=== PATIENT | female | born 1975 | race Caucasian/White ===

== ENCOUNTER 2017-01-07 18:02 | Emergency (ER) | payer OTHER ==
--- NOTE | 2017-01-07 19:33 | DIAGNOSTIC IMAGING REPORT ---
PROCEDURE: XR CHEST 2 VIEW INDICATION: COUGH TECHNIQUE: Single view. COMPARISON: None. FINDINGS: The cardiomediastinal contour is normal. No central venous congestion. The pulmonary arteries are prominent. The lungs hyperinflated but clear without focal consolidation, pleural effusion or pneumothorax. The osseous structures are intact. IMPRESSION: 1. No acute disease. 2. Findings of asthma or emphysema.
--- NOTE | 2017-01-07 20:17 | ED ORDER SUMMARY ---
..... Patient: ANGIE MCCURDY OrderSheet [facility] VisitID: [id number] [address] [place] [address] 41y, F Registration Date/Time: 01/07/2017 ORDER SHEET Weight: 49.8 kg (measured) Allergies: No Known Drug Allergy GENERAL ORDERS: Chest 2V Urgent (18:58 01/07/2017 HBivens A.R.N.P.) (Ack 19:00 TBergley) (19:51 [facility] [place] [place] MEDICATION ORDERS: Albuterol Neb w Atrovent 1 unit dose (NOW) (18:58 01/07/2017 HBivens A.R.N.P.) (19:21 CBradburn R.N.) Albuterol Neb Tx 2 unit doses (NOW) (18:58 01/07/2017 HBivens A.R.N.P.) (19:22 CBradburn R.N.) IV FLUIDS: ORDER SHEET NOTES: [Electronically signed by Radha Yates (20:30 01/07/2017)] [Electronically signed by Joya Rodriges.R.N.P. (22:52 01/07/2017)] [Electronically locked/signed by Radha Yates (20:30 01/07/2017)]
--- NOTE | 2017-01-07 20:17 | ED NURSING NOTES ---
Clinical Report - Nurses [facility] [address] [place] [address] 01/07/2017 18:02 Patient: ANGIE MCCURDY TRIAGE 18:22 01/07/17. BP: 123/86. HR: 87. RR: 24. O2 saturation: 90%. Temp: 98.4 F. Pain level now: 01/07. --18:24 Jodie Price R.N. Triage time 18:24. Acuity: LEVEL 3. Chief Complaint: SORE THROAT. --18:26 Jodie Price R.N. Weight: 49.8 kg measured. Height/Length: 65 inches Per Patient. BMI: 18.3. --18:22 Jodie Price R.N. Medications None. --18:25 Jodie Price R.N. Allergies No Known Drug Allergy. --18:25 Jodie Price R.N. History Arrived by private vehicle. Historian: patient. Accompanied by family. This started yesterday. SURGERY HX: ( foot surgery). SOCIAL HX: Heavy tobacco smoker- 1 pack per day. Alcohol use. (denies). History of drug use. (denies). No infectious disease exposure. --18:26 Jodie Price R.N. ( cough). --18:27 Jodie Price R.N. PHYSICAL ASSESSMENT GENERAL / NEURO / PSYCH: Alert. Oriented X 4. Appears in no acute distress. HEENT: Facial swelling present Rt sided lymphadenopathy. Pupils equal, round and reactive to light. Pharyngeal erythema. Hoarse voice. Mouth within normal limits upon inspection. RESPIRATORY: Cough. Crackles and wheezes diffusely over both lungs. SKIN: Skin is warm. --18:32 Jodie Price R.N. NURSING PROGRESS NOTES 18:32 01/07/17. O2 saturation: 96% at 2 liters/minute. --18:33 Jodie Price R.N. Oxygen administered at 2 liters. Head of bed elevated. Call light placed in reach. Side rails up. Bed placed in lowest position. --18:35 Jodie Price R.N. ( report to ankita norman for end of shift coverage.). --18:51 Jodie Price R.N. 19:21 01/07/2017 ALBUTEROL NEB W ATROVENT Neb TX 1 unit dose given. Given by the respiratory therapist. Allergies verified and confirmed 5 rights. --19:21 Clarissa Keenan R.N. 19:22 01/07/2017 Albuterol Neb [place] Nebulizer 2 unit dose given. Given by the respiratory therapist. Allergies verified and confirmed 5 rights. --19:22 Clarissa Keenan R.N. DISPOSITION / DISCHARGE Departure time: 2029. Condition at departure: unchanged and stable. No learning barriers present. Discharge instructions provided and reviewed with the patient. Reviewed medication(s). Patient verbalized understanding. Written instructions provided in Kazakh. The patient was discharged by the nurse practitioner. She was discharged home. She left the Emergency Department ambulatory and via private vehicle. Patient driving. --20:30 Radha Yates. Locked/Released at 01/07/2017 20:30 by Radha Yates,
--- NOTE | 2017-01-07 20:17 | ED CLINICAL REPORT ---
Clinical Report - Physicians/Mid Levels [facility] [address] [place] [address] 01/07/2017 18:02 Patient: ANGIE MCCURDY Time Seen: 18:21; initial patient contact, initial documentation, patient care assumed. Arrived- By private vehicle. Historian- patient. HISTORY OF PRESENT ILLNESS Chief Complaint: COUGH. This started about 3 - 4 days ago and is still present. The illness is described as moderate. The patient has had a cough and a sore throat. She has had scant amounts of thick, yellow sputum. No difficulty breathing, chest discomfort or pain, fever or muscle aches. No nasal congestion or discharge, sinus pressure, sinus drainage or ear pain. Additional history - No known contact with a sick individual. No recent travel. Similar symptoms previously: None. Recent medical care: Not recently seen/assessed. REVIEW OF SYSTEMS The patient has had moderately enlarged right neck lymph nodes. All systems otherwise negative, except as recorded above. PAST HISTORY See nurses notes. ADDITIONAL PROBLEMS: Bronchitis. Depression. --14:36 Doreen Ocasio R.N. Concussion [RuleOut]. --14:36 Doreen Ocasio R.N.. ADDITIONAL SURGERIES: Foot surgery. --14:36 Doreen Ocasio R.N.. SOCIAL HISTORY Heavy tobacco smoker. Occasional alcohol use. History of occasional drug use: marijuana. Not exposed to second-hand smoke at home. No recent travel. Is a local resident. FAMILY HISTORY Negative. ADDITIONAL NOTES The nursing notes have been reviewed with agreement regarding the chief complaint, HPI, ROS, PMH and patient medications and allergies. PHYSICAL EXAM Vital Signs: 01/07/2017 18:22 BP: 123/86. HR: 87. RR: 24. O2 saturation: 90%. Temp: 98.4 F. Pain level now: 5/10. Have been reviewed as abnormal and appear to be correct. Blood pressure normal. Heart rate normal. Respiratory rate normal. Temperature normal. Oxygen saturation low. Appearance: Alert. No acute distress. Eyes: Pupils equal, round and reactive to light. Eyes normal inspection. ENT: Ears normal. Nose normal. Pharynx normal. Uvula midline. Neck: Normal inspection. Neck supple. CVS: Normal heart rate and rhythm. Heart sounds normal. Pulses normal. Respiratory: No respiratory distress. Breath sounds abnormal. Expiratory and inspiratory moderate bilateral wheezes diffusely. Abdomen: Soft and nontender. No organomegaly. Back: Normal inspection. Skin: Skin warm and dry. Normal skin color. No rash. Normal skin turgor. Extremities: Extremities exhibit normal ROM. No lower extremity edema. Neuro: Oriented X 3. No motor deficit. No sensory deficit. LABS, X-RAYS, AND EKG Chest X-ray: Normal Chest X-Ray. (IMPRESSION: 1. No acute disease. 2. Findings of asthma or emphysema. Electronically Final signed by:Yamilka Alba MD 01/07/2017 7:33:12 PM). The X-rays were interpreted by the radiologist and contemporaneously by me. PROGRESS AND PROCEDURES Course of Care: 2000. resp even and unlabored, still some mild B insp wheezes, but sounds better pt encouraged to f/u re concerns for developing emphysema. Patient counseled in person regarding the patient's stable condition, test results and diagnosis. Differential Diagnosis: Other possible considerations: flu, uri, viral illness, pharyngitis, pneumonia, asthma, bronchitits, copd, emphysema. Above considerations are based on history, physical exam, reassessment and X-Ray data. Differential diagnosis was discussed with patient. Disposition: Discharged home in good and improved condition (20:17). Condition: good and stable. CLINICAL IMPRESSION Acute bronchitis associated with chronic obstructive pulmonary disease. INSTRUCTIONS Do not smoke. Warnings: Further evaluation is necessary in order to assess the possibility of serious illness. It is very important to follow up with a physician. GENERAL WARNINGS: Return or contact your physician immediately if your condition worsens or changes unexpectedly, if not improving as expected, or if other problems arise. Specifically return if problem worsens. Prescription Medications: Albuterol HFA oral inhaler: inhale 1 to 2 puffs every four to six hours as needed for difficulty breathing. Dispense one (1) unit. No refills. Prednisone 20 mg: take 3 orally every day for 5 days. Dispense fifteen (15). No refills. Zithromax 250 mg tablets: take 2 orally today, followed by 1 daily for the next 4 days. No refills. Substitution is permissible. Follow-up: Follow up with your doctor in about two days even if well. Call for an appointment. Summary of care provided to patient. Understanding of the discharge instructions verbalized by patient. (Electronically signed by Joya Rodriges A.R.N.P. 01/07/2017 22:52)
--- NOTE | 2017-01-07 20:17 | ED ORDER SUMMARY ---
..... Patient: ANGIE MCCURDY OrderSheet [facility] VisitID: [id number] [address] [place] [address] 41y, F Registration Date/Time: 01/07/2017 ORDER SHEET Weight: 49.8 kg (measured) Allergies: No Known Drug Allergy GENERAL ORDERS: Chest 2V Urgent (18:58 01/07/2017 HBivens A.R.N.P.) (Ack 19:00 TBergley) (19:[facility] MEDICATION ORDERS: Albuterol Neb w Atrovent 1 unit dose (NOW) (18:58 01/07/2017 HBivens A.R.N.P.) (19:21 CBradburn R.N.) Albuterol Neb Tx 2 unit doses (NOW) (18:58 01/07/2017 HBivens A.R.N.P.) (19:22 CBradburn R.N.) IV FLUIDS: ORDER SHEET NOTES: [Electronically signed by Radha Yates (20:30 01/07/2017)] [Electronically signed by Joya Rodriges.R.N.P. (22:52 01/07/2017)] [Electronically locked/signed by Radha Yates (20:30 01/07/2017)]
--- NOTE | 2017-01-07 20:17 | ED NURSING NOTES ---
Clinical Report - Nurses [facility] [address] [place] [address] 01/07/2017 18:02 Patient: ANGIE MCCURDY TRIAGE 18:22 01/07/17. BP: 123/86. HR: 87. RR: 24. O2 saturation: 90%. Temp: 98.4 F. Pain level now: 01/07. --18:24 Jodie Price R.N. Triage time 18:24. Acuity: LEVEL 3. Chief Complaint: SORE THROAT. --18:26 Jodie Price R.N. Weight: 49.8 kg measured. Height/Length: 65 inches Per Patient. BMI: 18.3. --18:22 Jodie Price R.N. Medications None. --18:25 Jodie Price R.N. Allergies No Known Drug Allergy. --18:25 Jodie Price R.N. History Arrived by private vehicle. Historian: patient. Accompanied by family. This started yesterday. SURGERY HX: ( foot surgery). SOCIAL HX: Heavy tobacco smoker- 1 pack per day. Alcohol use. (denies). History of drug use. (denies). No infectious disease exposure. --18:26 Jodie Price R.N. ( cough). --18:27 Jodie Price R.N. PHYSICAL ASSESSMENT GENERAL / NEURO / PSYCH: Alert. Oriented X 4. Appears in no acute distress. HEENT: Facial swelling present Rt sided lymphadenopathy. Pupils equal, round and reactive to light. Pharyngeal erythema. Hoarse voice. Mouth within normal limits upon inspection. RESPIRATORY: Cough. Crackles and wheezes diffusely over both lungs. SKIN: Skin is warm. --18:32 Jodie Price R.N. NURSING PROGRESS NOTES 18:32 01/07/17. O2 saturation: 96% at 2 liters/minute. --18:33 Jodie Price R.N. Oxygen administered at 2 liters. Head of bed elevated. Call light placed in reach. Side rails up. Bed placed in lowest position. --18:35 Jodie Price R.N. ( report to ankita norman for end of shift coverage.). --18:51 Jodie Price R.N. 19:21 01/07/2017 ALBUTEROL NEB W ATROVENT Neb TX 1 unit dose given. Given by the respiratory therapist. Allergies verified and confirmed 5 rights. --19:21 Clarissa Keenan R.N. 19:22 01/07/2017 Albuterol Neb [place] Nebulizer 2 unit dose given. Given by the respiratory therapist. Allergies verified and confirmed 5 rights. --19:22 Clarissa Keenan R.N. DISPOSITION / DISCHARGE Departure time: 2029. Condition at departure: unchanged and stable. No learning barriers present. Discharge instructions provided and reviewed with the patient. Reviewed medication(s). Patient verbalized understanding. Written instructions provided in Chinese. The patient was discharged by the nurse practitioner. She was discharged home. She left the Emergency Department ambulatory and via private vehicle. Patient driving. --20:30 Radha Yates. Locked/Released at 01/07/2017 20:30 by Radha Yates,
--- NOTE | 2017-01-07 22:52 | ED DISCHARGE INSTRUCTIONS ---
Patient: ANGIE MCCURDY General Instructions [facility] VisitID: [id number] [place] [address] 41y, F Registration Date/Time: 01/07/2017 Acute bronchitis associated with chronic obstructive pulmonary disease. INSTRUCTIONS Do not smoke. Warnings: Further evaluation is necessary in order to assess the possibility of serious illness. It is very important to follow up with a physician. GENERAL WARNINGS: Return or contact your physician immediately if your condition worsens or changes unexpectedly, if not improving as expected, or if other problems arise. Specifically return if problem worsens. Prescription Medications: Albuterol HFA oral inhaler: inhale 1 to 2 puffs every four to six hours as needed for difficulty breathing. Dispense one (1) unit. No refills. Prednisone 20 mg: take 3 orally every day for 5 days. Dispense fifteen (15). No refills. Zithromax 250 mg tablets: take 2 orally today, followed by 1 daily for the next 4 days. No refills. Substitution is permissible. Follow-up: Follow up with your doctor in about two days even if well. Call for an appointment. Summary of care provided to patient. Understanding of the discharge instructions verbalized by patient. ADDITIONAL INFORMATION Bronchitis (Adult: Abx Tx) BRONCHITIS is an infection of the air passages (bronchial tubes). It often occurs during the common cold. Symptoms include cough with mucus (phlegm) and low-grade fever. Bronchitis usually lasts 7-14 days. Mild cases can be treated with simple home remedies. More severe infection is treated with an antibiotic. Home Care: If symptoms are severe, rest at home for the first 2-3 days. When you resume activity, don't let yourself get too tired. Do not smoke. Avoid being exposed to the smoke of others. You may use acetaminophen (Tylenol) or ibuprofen (Motrin, Advil) to control fever or pain, unless another medicine was prescribed for this. [NOTE: If you have chronic liver or kidney disease or ever had a stomach ulcer or GI bleeding, talk with your doctor before using these medicines.] Your appetite may be poor, so a light diet is fine. Avoid dehydration by drinking 6-8 glasses of fluids per day (water, soft, drinks, juices, tea, soup, etc.). Extra fluids will help loosen secretions in the lungs. Crnd-qsm-xuvjztt cough medicines that containdextromethorphan(such as Robitussin DM) and decongestants (Actifed or Sudafed) may help relieve cough and congestion. [NOTE: Do not use decongestants if you have high blood pressure.] Finish all antibiotic medicine, even if you are feeling better after only a few days. Follow Up with your doctor or as directed if you dont start to feel better after three days. [NOTE: If you are age 65 or older, or if you have chronic asthma or COPD, we recommend a PNEUMOCOCCAL VACCINATION every five years and a yearly INFLUENZAVACCINATION (FLU-SHOT) every . Ask your doctor about this. If you had an X-ray, a radiologist will review it. You will be notified of any new findings that may affect your care.] Get Prompt Medical Attention if any of the following occur: Fever over 100.4F (38.0C) for more than three days Trouble breathing, wheezing or pain with breathing Coughing up blood or increased amounts of colored sputum Weakness, drowsiness, headache, facial pain, ear pain or a stiff neck Bronchitis With Wheezing (Viral Or Bacterial: Adult) Bronchitis is an infection of the air passages. It often occurs during the common cold and is usually caused by a virus. Symptoms include cough with mucus (phlegm) and low-grade fever. If there is a lot of inflammation, air flow is restricted. The air passages may also go into spasm, especially if you are an asthmatic. This causes wheezing and difficulty breathing even in persons who do not have asthma. Bronchitis usually lasts 7-14 days. The wheezing should improve with treatment during the first week. An inhaler is often prescribed to relax the air passages and stop wheezing. Antibiotics will be prescribed if your doctor thinks there is also a secondary bacterial infection. Home Care: If symptoms are severe, rest at home for the first 2-3 days. When resuming activity, don't let yourself become overly tired. Do not smoke and avoid exposure to the smoke of others. You may use acetaminophen (Tylenol) or ibuprofen (Motrin, Advil) to control fever, unless another medicine was prescribed. [NOTE: If you have chronic liver or kidney disease or ever had a stomach ulcer or GI bleeding, talk with your doctor before using these medicines.] (Aspirin should never be used in anyone under 18 years of age who is ill with a fever. It may cause severe liver damage.) Your appetite may be poor so a light diet is fine. Avoid dehydration by drinking 6-8 glasses of fluids per day (water, soft, drinks, juices, tea, soup, etc.). Extra fluids will help loosen secretions in the lungs. Mjvz-hxv-rtuzonc cough medicines that containdextromethorphan(such as Robitussin DM) and decongestants (Actifed or Sudafed) may help relieve cough and congestion. [NOTE: Do not use decongestants if you have high blood pressure.] If you were given an inhaler, use it exactly as directed. If you need to use it more often than prescribed, your condition may be worsening. Contact your doctor or this facility. If prescribed, finish all antibiotic medicine, even if you are feeling better after only a few days. Follow Up With Your Doctor Or As Directed If You Are Not Starting To Feel Better After Three Days. [NOTE: If you are age 65 or older, or if you have chronic asthma or COPD, we recommend a pneumococcal vaccination every five years and a yearly influenza vaccination (flu shot) every . Ask your doctor about this. If you had an x-ray or EKG (electrocardiogram), it will be reviewed by a specialist. You will be notified of any new findings that may affect your care.] Get Prompt Medical Attention If Any Of The Following Occur: Increased wheezing, shortness of breath or pain with breathing Fever of 100.4F (38C) oral or higher, not better with fever medication Coughing up blood or increasing amounts of colored sputum Weakness, drowsiness, headache, facial pain, ear pain or a stiff neck Lower leg swelling, tenderness, redness or pain Albuterol Sulfate Pressurized inhalation, suspension What is this medicine? ALBUTEROL (al BYOO ter ole) is a bronchodilator. It helps open up the airways in your lungs to make it easier to breathe. This medicine is used to treat and to prevent bronchospasm. How should I use this medicine? This medicine is for inhalation through the mouth. Follow the directions on your prescription label. Take your medicine at regular intervals. Do not use more often than directed. Make sure that you are using your inhaler correctly. Ask you doctor or health care provider if you have any questions. Talk to your feed management advisor regarding the use of this medicine in children. Special care may be needed. What side effects may I notice from receiving this medicine? Side effects that you should report to your doctor or health home health care case manager as soon as possible: allergic reactions like skin rash, itching or hives, swelling of the face, lips, or tongue breathing problems chest pain feeling faint or lightheaded, falls high blood pressure irregular heartbeat fever muscle cramps or weakness pain, tingling, numbness in the hands or feet vomiting Side effects that usually do not require medical attention (report to your doctor or health home health care case manager if they continue or are bothersome): cough difficulty sleeping headache nervousness or trembling stomach upset stuffy or runny nose throat irritation unusual taste What may interact with this medicine? anti-infectives like chloroquine and pentamidine caffeine cisapride diuretics medicines for colds medicines for depression or for emotional or psychotic conditions medicines for weight loss including some herbal products methadone some antibiotics like clarithromycin, erythromycin, levofloxacin, and linezolid some heart medicines steroid hormones like dexamethasone, cortisone, hydrocortisone theophylline thyroid hormones What if I miss a dose? If you miss a dose, use it as soon as you can. If it is almost time for your next dose, use only that dose. Do not use double or extra doses. Where should I keep my medicine? Keep out of the reach of children. Store at room temperature between 15 and 30 degrees C (59 and 86 degrees F). The contents are under pressure and may burst when exposed to heat or flame. Do not freeze. This medicine does not work as well if it is too cold. Throw away any unused medicine after the expiration date. Inhalers need to be thrown away after the labeled number of puffs have been used or by the expiration date; whichever comes first. Ventolin HFA should be thrown away 12 months after removing from foil pouch. Check the instructions that come with your medicine. What should I tell my health care provider before I take this medicine? They need to know if you have any of the following conditions: diabetes heart disease or irregular heartbeat high blood pressure pheochromocytoma seizures thyroid disease an unusual or allergic reaction to albuterol, levalbuterol, sulfites, other medicines, foods, dyes, or preservatives or trying to get breast-feeding What should I watch for while using this medicine? Tell your doctor or health home health care case manager if your symptoms do not improve. Do not use extra albuterol. If your asthma or bronchitis gets worse while you are using this medicine, call your doctor right away. If your mouth gets dry try chewing sugarless gum or sucking hard candy. Drink water as directed. Prednisone Oral tablet What is this medicine? PREDNISONE (PRED ni sone) is a corticosteroid. It is commonly used to treat inflammation of the skin, joints, lungs, and other organs. Common conditions treated include asthma, allergies, and arthritis. It is also used for other conditions, such as blood disorders and diseases of the adrenal glands. How should I use this medicine? Take this medicine by mouth with a glass of water. Follow the directions on the prescription label. Take this medicine with food. If you are taking this medicine once a day, take it in the morning. Do not take more medicine than you are told to take. Do not suddenly stop taking your medicine because you may develop a severe reaction. Your doctor will tell you how much medicine to take. If your doctor wants you to stop the medicine, the dose may be slowly lowered over time to avoid any side effects. Talk to your feed management advisor regarding the use of this medicine in children. Special care may be needed. What side effects may I notice from receiving this medicine? Side effects that you should report to your doctor or health home health care case manager as soon as possible: allergic reactions like skin rash, itching or hives, swelling of the face, lips, or tongue changes in emotions or moods changes in vision depressed mood eye pain fever or chills, cough, sore throat, pain or difficulty passing urine increased thirst swelling of ankles, feet Side effects that usually do not require medical attention (report to your doctor or health home health care case manager if they continue or are bothersome): confusion, excitement, restlessness headache nausea, vomiting skin problems, acne, thin and shiny skin trouble sleeping weight gain What may interact with this medicine? Do not take this medicine with any of the following medications: metyrapone mifepristone This medicine may also interact with the following medications: aminoglutethimide amphotericin B aspirin and aspirin-like medicines barbiturates certain medicines for diabetes, like glipizide or glyburide cholestyramine cholinesterase inhibitors cyclosporine digoxin diuretics ephedrine female hormones, like estrogens and control pills isoniazid ketoconazole NSAIDS, medicines for pain and inflammation, like ibuprofen or naproxen phenytoin rifampin toxoids vaccines warfarin What if I miss a dose? If you miss a dose, take it as soon as you can. If it is almost time for your next dose, talk to your doctor or health home health care case manager. You may need to miss a dose or take an extra dose. Do not take double or extra doses without advice. Where should I keep my medicine? Keep out of the reach of children. Store at room temperature between 15 and 30 degrees C (59 and 86 degrees F). Protect from light. Keep container tightly closed. Throw away any unused medicine after the expiration date. What should I tell my health care provider before I take this medicine? They need to know if you have any of these conditions: [place]'s syndrome diabetes glaucoma heart disease high blood pressure infection (especially a virus infection such as chickenpox, cold sores, or herpes) kidney disease liver disease mental illness myasthenia gravis osteoporosis seizures stomach or intestine problems thyroid disease an unusual or allergic reaction to lactose, prednisone, other medicines, foods, dyes, or preservatives or trying to get breast-feeding What should I watch for while using this medicine? Visit your doctor or health home health care case manager for regular checks on your progress. If you are taking this medicine over a prolonged period, carry an identification card with your name and address, the type and dose of your medicine, and your doctor's name and address. This medicine may increase your risk of getting an infection. Tell your doctor or health home health care case manager if you are around anyone with measles or chickenpox, or if you develop sores or blisters that do not heal properly. If you are going to have surgery, tell your doctor or health home health care case manager that you have taken this medicine within the last twelve months. Ask your doctor or health home health care case manager about your diet. You may need to lower the amount of salt you eat. This medicine may affect blood sugar levels. If you have diabetes, check with your doctor or health home health care case manager before you change your diet or the dose of your diabetic medicine. Azithromycin Oral tablet What is this medicine? AZITHROMYCIN (az ith geovani MYE sin) is a macrolide antibiotic. It is used to treat or prevent certain kinds of bacterial infections. It will not work for colds, flu, or other viral infections. How should I use this medicine? Take this medicine by mouth with a full glass of water. Follow the directions on the prescription label. The tablets can be taken with food or on an empty stomach. If the medicine upsets your stomach, take it with food. Take your medicine at regular intervals. Do not take your medicine more often than directed. Take all of your medicine as directed even if you think your are better. Do not skip doses or stop your medicine early. Talk to your feed management advisor regarding the use of this medicine in children. Special care may be needed. What side effects may I notice from receiving this medicine? Side effects that you should report to your doctor or health home health care case manager as soon as possible: allergic reactions like skin rash, itching or hives, swelling of the face, lips, or tongue confusion, nightmares or hallucinations dark urine difficulty breathing hearing loss irregular heartbeat or chest pain pain or difficulty passing urine redness, blistering, peeling or loosening of the skin, including inside the mouth white patches or sores in the mouth yellowing of the eyes or skin Side effects that usually do not require medical attention (report to your doctor or health home health care case manager if they continue or are bothersome): diarrhea dizziness, drowsiness headache stomach upset or vomiting tooth discoloration vaginal irritation What may interact with this medicine? Do not take this medicine with any of the following medications: lincomycin This medicine may also interact with the following medications: amiodarone antacids cyclosporine digoxin magnesium nelfinavir phenytoin warfarin What if I miss a dose? If you miss a dose, take it as soon as you can. If it is almost time for your next dose, take only that dose. Do not take double or extra doses. Where should I keep my medicine? Keep out of the reach of children. Store at room temperature between 15 and 30 degrees C (59 and 86 degrees F). Throw away any unused medicine after the expiration date. What should I tell my health care provider before I take this medicine? They need to know if you have any of these conditions: kidney disease liver disease irregular heartbeat or heart disease an unusual or allergic reaction to azithromycin, erythromycin, other macrolide antibiotics, foods, dyes, or preservatives or trying to get breast-feeding What should I watch for while using this medicine? Tell your doctor or health home health care case manager if your symptoms do not improve. Do not treat diarrhea with over the counter products. Contact your doctor if you have diarrhea that lasts more than 2 days or if it is severe and watery. This medicine can make you more sensitive to the sun. Keep out of the sun. If you cannot avoid being in the sun, wear protective clothing and use sunscreen. Do not use sun lamps or tanning beds/booths. You have been given the following additional information: Bronchitis, Antiobiotic Treatment (Adult) Bronchitis With Wheezing (Adult) Albuterol Sulfate Pressurized inhalation, suspension Prednisone Oral tablet Azithromycin Oral tablet (Electronically signed by Joya Rodriges A.R.N.P. 01/07/2017 22:52)
--- NOTE | 2017-01-07 22:52 | ED MED RECONCILIATION SUMMARY ---
Patient: ANGIE MCCURDY Medication Reconciliation Report [facility] VisitID: [id number] [address] [place] [address] 41y, F Registration Date/Time: 01/07/2017 Weight: 49.8 kg Height/Length: 65 in. BMI: 18.3 ALLERGIES: No Known Drug Allergy The patient's Home Medications are listed below: NONE. The source(s) of the original Home Medication information: Not obtained. The following Medications were given to the patient in the Emergency Department: ALBUTEROL NEB W ATROVENT Neb TX 1 unit dose, administered: 01/07/2017 7:21:00 PM Albuterol [Neb Tx] Neb TX 2 unit dose, administered: 01/07/2017 7:22:00 PM The following Medications were prescribed to the patient: Albuterol HFA oral inhaler: inhale 1 to 2 puffs every four to six hours as needed for difficulty breathing. Dispense one (1) unit. No refills. -- Joya Rodriges, A.R.N.P. Prednisone 20 mg: take 3 orally every day for 5 days. Dispense fifteen (15). No refills. -- Joya Rodriges A.R.N.P. Zithromax 250 mg tablets: take 2 orally today, followed by 1 daily for the next 4 days. No refills. Substitution is permissible. -- Joya Rodriges A.R.N.P.
--- NOTE | 2017-01-07 22:52 | ED MAR SUMMARY ---
..... Medication Administration Record [facility] [address] [place] [address] Patient: ANGIE MCCURDY Visit ID: [id number] 41y, F Weight: 49.8 kg Height/Length: 65 in BMI: 18.3 ALLERGIES: No Known Drug Allergy Given 19:01/07/2017 Clarissa Kenean R.N. Medication Administered: ALBUTEROL NEB W ATROVENT, Dose: 1 unit dose Neb TX. Medication Ordered: Albuterol Neb w Atrovent 1 unit dose (NOW). Given 19:22 01/07/2017 Clarissa Keenan RSeven Medication Administered: ALBUTEROL [NEB TX], Dose: 2 unit dose Nebulizer Neb TX. Medication Ordered: Albuterol Neb Tx 2 unit doses (NOW).
--- NOTE | 2017-01-07 22:52 | ED MED RECONCILIATION SUMMARY ---
Patient: ANGIE MCCURDY Medication Reconciliation Report [facility] VisitID: [id number] [address] [place] [address] 41y, F Registration Date/Time: 01/07/2017 Weight: 49.8 kg Height/Length: 65 in. BMI: 18.3 ALLERGIES: No Known Drug Allergy The patient's Home Medications are listed below: NONE. The source(s) of the original Home Medication information: Not obtained. The following Medications were given to the patient in the Emergency Department: ALBUTEROL NEB W ATROVENT Neb TX 1 unit dose, administered: 01/07/2017 7:21:00 PM Albuterol [Neb Tx] Neb TX 2 unit dose, administered: 01/07/2017 7:22:00 PM The following Medications were prescribed to the patient: Albuterol HFA oral inhaler: inhale 1 to 2 puffs every four to six hours as needed for difficulty breathing. Dispense one (1) unit. No refills. -- Joya Rodriges, A.R.N.P. Prednisone 20 mg: take 3 orally every day for 5 days. Dispense fifteen (15). No refills. -- Joya Rodriges A.R.N.P. Zithromax 250 mg tablets: take 2 orally today, followed by 1 daily for the next 4 days. No refills. Substitution is permissible. -- Joya Rodriges A.R.N.P.
--- NOTE | 2017-01-07 22:52 | ED DISCHARGE INSTRUCTIONS ---
Patient: ANGIE MCCURDY General Instructions [facility] VisitID: [id number] [place] [address] 41y, F Registration Date/Time: 01/07/2017 Acute bronchitis associated with chronic obstructive pulmonary disease. INSTRUCTIONS Do not smoke. Warnings: Further evaluation is necessary in order to assess the possibility of serious illness. It is very important to follow up with a physician. GENERAL WARNINGS: Return or contact your physician immediately if your condition worsens or changes unexpectedly, if not improving as expected, or if other problems arise. Specifically return if problem worsens. Prescription Medications: Albuterol HFA oral inhaler: inhale 1 to 2 puffs every four to six hours as needed for difficulty breathing. Dispense one (1) unit. No refills. Prednisone 20 mg: take 3 orally every day for 5 days. Dispense fifteen (15). No refills. Zithromax 250 mg tablets: take 2 orally today, followed by 1 daily for the next 4 days. No refills. Substitution is permissible. Follow-up: Follow up with your doctor in about two days even if well. Call for an appointment. Summary of care provided to patient. Understanding of the discharge instructions verbalized by patient. ADDITIONAL INFORMATION Bronchitis (Adult: Abx Tx) BRONCHITIS is an infection of the air passages (bronchial tubes). It often occurs during the common cold. Symptoms include cough with mucus (phlegm) and low-grade fever. Bronchitis usually lasts 7-14 days. Mild cases can be treated with simple home remedies. More severe infection is treated with an antibiotic. Home Care: If symptoms are severe, rest at home for the first 2-3 days. When you resume activity, don't let yourself get too tired. Do not smoke. Avoid being exposed to the smoke of others. You may use acetaminophen (Tylenol) or ibuprofen (Motrin, Advil) to control fever or pain, unless another medicine was prescribed for this. [NOTE: If you have chronic liver or kidney disease or ever had a stomach ulcer or GI bleeding, talk with your doctor before using these medicines.] Your appetite may be poor, so a light diet is fine. Avoid dehydration by drinking 6-8 glasses of fluids per day (water, soft, drinks, juices, tea, soup, etc.). Extra fluids will help loosen secretions in the lungs. Dtvl-bek-zlhcfky cough medicines that containdextromethorphan(such as Robitussin DM) and decongestants (Actifed or Sudafed) may help relieve cough and congestion. [NOTE: Do not use decongestants if you have high blood pressure.] Finish all antibiotic medicine, even if you are feeling better after only a few days. Follow Up with your doctor or as directed if you dont start to feel better after three days. [NOTE: If you are age 65 or older, or if you have chronic asthma or COPD, we recommend a PNEUMOCOCCAL VACCINATION every five years and a yearly INFLUENZAVACCINATION (FLU-SHOT) every . Ask your doctor about this. If you had an X-ray, a radiologist will review it. You will be notified of any new findings that may affect your care.] Get Prompt Medical Attention if any of the following occur: Fever over 100.4F (38.0C) for more than three days Trouble breathing, wheezing or pain with breathing Coughing up blood or increased amounts of colored sputum Weakness, drowsiness, headache, facial pain, ear pain or a stiff neck Bronchitis With Wheezing (Viral Or Bacterial: Adult) Bronchitis is an infection of the air passages. It often occurs during the common cold and is usually caused by a virus. Symptoms include cough with mucus (phlegm) and low-grade fever. If there is a lot of inflammation, air flow is restricted. The air passages may also go into spasm, especially if you are an asthmatic. This causes wheezing and difficulty breathing even in persons who do not have asthma. Bronchitis usually lasts 7-14 days. The wheezing should improve with treatment during the first week. An inhaler is often prescribed to relax the air passages and stop wheezing. Antibiotics will be prescribed if your doctor thinks there is also a secondary bacterial infection. Home Care: If symptoms are severe, rest at home for the first 2-3 days. When resuming activity, don't let yourself become overly tired. Do not smoke and avoid exposure to the smoke of others. You may use acetaminophen (Tylenol) or ibuprofen (Motrin, Advil) to control fever, unless another medicine was prescribed. [NOTE: If you have chronic liver or kidney disease or ever had a stomach ulcer or GI bleeding, talk with your doctor before using these medicines.] (Aspirin should never be used in anyone under 18 years of age who is ill with a fever. It may cause severe liver damage.) Your appetite may be poor so a light diet is fine. Avoid dehydration by drinking 6-8 glasses of fluids per day (water, soft, drinks, juices, tea, soup, etc.). Extra fluids will help loosen secretions in the lungs. Gugt-mpk-gcffhpv cough medicines that containdextromethorphan(such as Robitussin DM) and decongestants (Actifed or Sudafed) may help relieve cough and congestion. [NOTE: Do not use decongestants if you have high blood pressure.] If you were given an inhaler, use it exactly as directed. If you need to use it more often than prescribed, your condition may be worsening. Contact your doctor or this facility. If prescribed, finish all antibiotic medicine, even if you are feeling better after only a few days. Follow Up With Your Doctor Or As Directed If You Are Not Starting To Feel Better After Three Days. [NOTE: If you are age 65 or older, or if you have chronic asthma or COPD, we recommend a pneumococcal vaccination every five years and a yearly influenza vaccination (flu shot) every . Ask your doctor about this. If you had an x-ray or EKG (electrocardiogram), it will be reviewed by a specialist. You will be notified of any new findings that may affect your care.] Get Prompt Medical Attention If Any Of The Following Occur: Increased wheezing, shortness of breath or pain with breathing Fever of 100.4F (38C) oral or higher, not better with fever medication Coughing up blood or increasing amounts of colored sputum Weakness, drowsiness, headache, facial pain, ear pain or a stiff neck Lower leg swelling, tenderness, redness or pain Albuterol Sulfate Pressurized inhalation, suspension What is this medicine? ALBUTEROL (al BYOO ter ole) is a bronchodilator. It helps open up the airways in your lungs to make it easier to breathe. This medicine is used to treat and to prevent bronchospasm. How should I use this medicine? This medicine is for inhalation through the mouth. Follow the directions on your prescription label. Take your medicine at regular intervals. Do not use more often than directed. Make sure that you are using your inhaler correctly. Ask you doctor or health care provider if you have any questions. Talk to your supervisor powdered metal regarding the use of this medicine in children. Special care may be needed. What side effects may I notice from receiving this medicine? Side effects that you should report to your doctor or health child care center assistant director as soon as possible: allergic reactions like skin rash, itching or hives, swelling of the face, lips, or tongue breathing problems chest pain feeling faint or lightheaded, falls high blood pressure irregular heartbeat fever muscle cramps or weakness pain, tingling, numbness in the hands or feet vomiting Side effects that usually do not require medical attention (report to your doctor or health child care center assistant director if they continue or are bothersome): cough difficulty sleeping headache nervousness or trembling stomach upset stuffy or runny nose throat irritation unusual taste What may interact with this medicine? anti-infectives like chloroquine and pentamidine caffeine cisapride diuretics medicines for colds medicines for depression or for emotional or psychotic conditions medicines for weight loss including some herbal products methadone some antibiotics like clarithromycin, erythromycin, levofloxacin, and linezolid some heart medicines steroid hormones like dexamethasone, cortisone, hydrocortisone theophylline thyroid hormones What if I miss a dose? If you miss a dose, use it as soon as you can. If it is almost time for your next dose, use only that dose. Do not use double or extra doses. Where should I keep my medicine? Keep out of the reach of children. Store at room temperature between 15 and 30 degrees C (59 and 86 degrees F). The contents are under pressure and may burst when exposed to heat or flame. Do not freeze. This medicine does not work as well if it is too cold. Throw away any unused medicine after the expiration date. Inhalers need to be thrown away after the labeled number of puffs have been used or by the expiration date; whichever comes first. Ventolin HFA should be thrown away 12 months after removing from foil pouch. Check the instructions that come with your medicine. What should I tell my health care provider before I take this medicine? They need to know if you have any of the following conditions: diabetes heart disease or irregular heartbeat high blood pressure pheochromocytoma seizures thyroid disease an unusual or allergic reaction to albuterol, levalbuterol, sulfites, other medicines, foods, dyes, or preservatives or trying to get breast-feeding What should I watch for while using this medicine? Tell your doctor or health child care center assistant director if your symptoms do not improve. Do not use extra albuterol. If your asthma or bronchitis gets worse while you are using this medicine, call your doctor right away. If your mouth gets dry try chewing sugarless gum or sucking hard candy. Drink water as directed. Prednisone Oral tablet What is this medicine? PREDNISONE (PRED ni sone) is a corticosteroid. It is commonly used to treat inflammation of the skin, joints, lungs, and other organs. Common conditions treated include asthma, allergies, and arthritis. It is also used for other conditions, such as blood disorders and diseases of the adrenal glands. How should I use this medicine? Take this medicine by mouth with a glass of water. Follow the directions on the prescription label. Take this medicine with food. If you are taking this medicine once a day, take it in the morning. Do not take more medicine than you are told to take. Do not suddenly stop taking your medicine because you may develop a severe reaction. Your doctor will tell you how much medicine to take. If your doctor wants you to stop the medicine, the dose may be slowly lowered over time to avoid any side effects. Talk to your supervisor powdered metal regarding the use of this medicine in children. Special care may be needed. What side effects may I notice from receiving this medicine? Side effects that you should report to your doctor or health child care center assistant director as soon as possible: allergic reactions like skin rash, itching or hives, swelling of the face, lips, or tongue changes in emotions or moods changes in vision depressed mood eye pain fever or chills, cough, sore throat, pain or difficulty passing urine increased thirst swelling of ankles, feet Side effects that usually do not require medical attention (report to your doctor or health child care center assistant director if they continue or are bothersome): confusion, excitement, restlessness headache nausea, vomiting skin problems, acne, thin and shiny skin trouble sleeping weight gain What may interact with this medicine? Do not take this medicine with any of the following medications: metyrapone mifepristone This medicine may also interact with the following medications: aminoglutethimide amphotericin B aspirin and aspirin-like medicines barbiturates certain medicines for diabetes, like glipizide or glyburide cholestyramine cholinesterase inhibitors cyclosporine digoxin diuretics ephedrine female hormones, like estrogens and control pills isoniazid ketoconazole NSAIDS, medicines for pain and inflammation, like ibuprofen or naproxen phenytoin rifampin toxoids vaccines warfarin What if I miss a dose? If you miss a dose, take it as soon as you can. If it is almost time for your next dose, talk to your doctor or health child care center assistant director. You may need to miss a dose or take an extra dose. Do not take double or extra doses without advice. Where should I keep my medicine? Keep out of the reach of children. Store at room temperature between 15 and 30 degrees C (59 and 86 degrees F). Protect from light. Keep container tightly closed. Throw away any unused medicine after the expiration date. What should I tell my health care provider before I take this medicine? They need to know if you have any of these conditions: Wolcott's syndrome diabetes glaucoma heart disease high blood pressure infection (especially a virus infection such as chickenpox, cold sores, or herpes) kidney disease liver disease mental illness myasthenia gravis osteoporosis seizures stomach or intestine problems thyroid disease an unusual or allergic reaction to lactose, prednisone, other medicines, foods, dyes, or preservatives or trying to get breast-feeding What should I watch for while using this medicine? Visit your doctor or health child care center assistant director for regular checks on your progress. If you are taking this medicine over a prolonged period, carry an identification card with your name and address, the type and dose of your medicine, and your doctor's name and address. This medicine may increase your risk of getting an infection. Tell your doctor or health child care center assistant director if you are around anyone with measles or chickenpox, or if you develop sores or blisters that do not heal properly. If you are going to have surgery, tell your doctor or health child care center assistant director that you have taken this medicine within the last twelve months. Ask your doctor or health child care center assistant director about your diet. You may need to lower the amount of salt you eat. This medicine may affect blood sugar levels. If you have diabetes, check with your doctor or health child care center assistant director before you change your diet or the dose of your diabetic medicine. Azithromycin Oral tablet What is this medicine? AZITHROMYCIN (az ith geovani MYE sin) is a macrolide antibiotic. It is used to treat or prevent certain kinds of bacterial infections. It will not work for colds, flu, or other viral infections. How should I use this medicine? Take this medicine by mouth with a full glass of water. Follow the directions on the prescription label. The tablets can be taken with food or on an empty stomach. If the medicine upsets your stomach, take it with food. Take your medicine at regular intervals. Do not take your medicine more often than directed. Take all of your medicine as directed even if you think your are better. Do not skip doses or stop your medicine early. Talk to your supervisor powdered metal regarding the use of this medicine in children. Special care may be needed. What side effects may I notice from receiving this medicine? Side effects that you should report to your doctor or health child care center assistant director as soon as possible: allergic reactions like skin rash, itching or hives, swelling of the face, lips, or tongue confusion, nightmares or hallucinations dark urine difficulty breathing hearing loss irregular heartbeat or chest pain pain or difficulty passing urine redness, blistering, peeling or loosening of the skin, including inside the mouth white patches or sores in the mouth yellowing of the eyes or skin Side effects that usually do not require medical attention (report to your doctor or health child care center assistant director if they continue or are bothersome): diarrhea dizziness, drowsiness headache stomach upset or vomiting tooth discoloration vaginal irritation What may interact with this medicine? Do not take this medicine with any of the following medications: lincomycin This medicine may also interact with the following medications: amiodarone antacids cyclosporine digoxin magnesium nelfinavir phenytoin warfarin What if I miss a dose? If you miss a dose, take it as soon as you can. If it is almost time for your next dose, take only that dose. Do not take double or extra doses. Where should I keep my medicine? Keep out of the reach of children. Store at room temperature between 15 and 30 degrees C (59 and 86 degrees F). Throw away any unused medicine after the expiration date. What should I tell my health care provider before I take this medicine? They need to know if you have any of these conditions: kidney disease liver disease irregular heartbeat or heart disease an unusual or allergic reaction to azithromycin, erythromycin, other macrolide antibiotics, foods, dyes, or preservatives or trying to get breast-feeding What should I watch for while using this medicine? Tell your doctor or health child care center assistant director if your symptoms do not improve. Do not treat diarrhea with over the counter products. Contact your doctor if you have diarrhea that lasts more than 2 days or if it is severe and watery. This medicine can make you more sensitive to the sun. Keep out of the sun. If you cannot avoid being in the sun, wear protective clothing and use sunscreen. Do not use sun lamps or tanning beds/booths. You have been given the following additional information: Bronchitis, Antiobiotic Treatment (Adult) Bronchitis With Wheezing (Adult) Albuterol Sulfate Pressurized inhalation, suspension Prednisone Oral tablet Azithromycin Oral tablet (Electronically signed by Joya Rodriges A.R.N.P. 01/07/2017 22:52)
--- NOTE | 2017-01-07 22:52 | ED MAR SUMMARY ---
..... Medication Administration Record [facility] [address] [place] [address] Patient: ANGIE MCCURDY Visit ID: [id number] 41y, F Weight: 49.8 kg Height/Length: 65 in BMI: 18.3 ALLERGIES: No Known Drug Allergy Given 19:01/07/2017 Clarissa Keenan R.N. Medication Administered: ALBUTEROL NEB W ATROVENT, Dose: 1 unit dose Neb TX. Medication Ordered: Albuterol Neb w Atrovent 1 unit dose (NOW). Given 19:22 01/07/2017 Clarissa Keenan RSeven Medication Administered: ALBUTEROL [NEB TX], Dose: 2 unit dose Nebulizer Neb TX. Medication Ordered: Albuterol Neb Tx 2 unit doses (NOW).
== END 2017-01-07 20:30 | disposition home or self-care (01) ==
LOC: ED SRH 18:02
DX: J44.0 Chronic obstructive pulmonary disease with (acute) lower respiratory infection (principal); F17.210 Nicotine dependence, cigarettes, uncomplicated